=== PATIENT | male | born 1955 | race Caucasian/White ===

== ENCOUNTER → 2022-02-16 | Outpatient (CLI) | payer OTHER ==
[2016-08-26 11:00] VITALS: BP 118/70
[~2022-02-16] MED LIST: ALLO300T PO; ESZO3TAB28 PO; INSU100I13 SQ; INSU100V11 IJ; LEVO500T9 PO; ZOLP10TA4 PO
--- NOTE | 2022-02-16 16:38 | RAD ---
EXAM: LUMBAR SPINE 2 VIEWS. HISTORY: Low back pain COMPARISON: None. FINDINGS: There is a minimal lumbar dextrocurvature, within normal limits. Vertebral body heights are maintained, and no fractures are identified. Degenerative disc disease is moderate to severe from L3 through L5 with vacuum phenomena and endplate sclerosis. There is mild to moderate degenerative disc disease at L5-S1. Prominent anterior vertebral body spurs are noted from L2 through S1. Facet osteoa rthritis is at least moderate from L3 through S1. IMPRESSION: 1. Degenerative disc disease is moderate to severe from L3 through L5 and moderate at L5-S1. Electronically signed by: Neto Shane MD (02/16/2022 4:36 PM) [id number]
== END ==
LOC: RAD 10:19
PROVIDERS: ATTEND Family Medicine
DX: Z02.71 Encounter for disability determination (principal); M51.37 Other intervertebral disc degeneration, lumbosacral region
CPT/HCPCS: 72100